=== PATIENT | male | born 1945 | race Caucasian/White ===

== ENCOUNTER 2019-10-31 21:52 | Emergency (ER) | payer MEDICARE ==
[~2019-10-31] VITALS: Ht 172.7 cm; Wt 95.0 kg
[2019-10-31 22:17] LABS: BASOPHILS # (AUTO) 0.02 x10^3/uL (0-0.1); BASOPHILS % (AUTO) 0 % (0-1); EOSINOPHILS # (AUTO) 0.14 x10^3/uL (0-0.4); EOSINOPHILS % (AUTO) 2 % (1-7); LYMPHOCYTES # (AUTO) 1.35 x10^3/uL (1-3.4); LYMPHOCYTES % (AUTO) 20 % (22-44); MD NO; MEAN CORPUSCULAR HEMOGLOBIN 26.1 pg (27.5-34.5); MEAN CORPUSCULAR HGB CONC 32.2 g/dL (33.2-36.2); MEAN CORPUSCULAR VOLUME 81.1 fL (81-97); MEAN PLATELET VOLUME 8.3 fL (7.4-10.4); MONOCYTES # (AUTO) 0.45 x10^3/uL (0.2-0.8); MONOCYTES % (AUTO) 7 % (2-9); NEUTROPHILS % (AUTO) 71 % (42-75); PLATELET COUNT 279 x10^3/uL (130-400); RED BLOOD COUNT 4.86 x10^6/uL (4.38-5.82); RED CELL DISTRIBUTION WIDTH 16.4 % (9.4-14.8)
[2019-10-31 22:30] LABS: ALANINE AMINOTRANSFERASE 27 U/L (12-78); ALBUMIN 3.3 g/dL (3.4-5.0); ANION GAP 11 mmol/L (5-15); CHLORIDE 109 mmol/L (98-107); CREATININE 1.32 mg/dL (0.7-1.3)
[2019-10-31 22:35] LABS: ALKALINE PHOSPHATASE 87 U/L (45-117); BILIRUBIN,TOTAL 0.3 mg/dL (0.2-1.0); TOTAL PROTEIN 7.3 g/dL (6.4-8.2); TROPONIN I < 0.015 ng/mL (0.000-0.045)
[2019-10-31 22:45] VITALS: BP 111/56
--- NOTE | 2019-10-31 22:46 | NUR ---
PT RESTING IN BED, DENIES ANY DISCOMFORT AT THIS TIME, AND BEDSIDE, NO COMPLAINTS
== END 2019-10-31 23:30 | disposition home or self-care (01) ==
LOC: ED 22:04
DX: R55 Syncope and collapse (principal); R42 Dizziness and giddiness; I44.4 Left anterior fascicular block; R94.31 Abnormal electrocardiogram [ECG] [EKG]
CPT/HCPCS: 36415; 71045; 80053; 83735; 84484; 85025; 93005; 99285

== ENCOUNTER 2020-04-17 16:51 | Outpatient (CLI) | payer MEDICARE | END 2020-04-17 23:59 | disposition home or self-care (01) | LOC: RAD 16:51 | PROVIDERS: ATTEND Physician Assistant Medical | DX: M19.042 Primary osteoarthritis, left hand (principal); M25.742 Osteophyte, left hand ==